=== PATIENT | male | born 1975 | race Caucasian/White ===

== ENCOUNTER 2022-12-20 03:57 | Day surgery (SDC) | payer OTHER ==
[2022-12-17 12:40] VITALS: BMI 31.4
[2022-12-20] MEDS ORDERED: PROPOFOL 40 ML ONE (07:35)
[2022-12-20] MEDS ORDERED: COCAINE HCL 4% TOPICAL SOLUTION 4 ML BOTTLE TP ONE (07:42)
[2022-12-20] MEDS ORDERED: MIDAZOLAM HCL 2 MG/2 ML SINGLE DOSE VIAL ONE (08:52)
[2022-12-20] MEDS ORDERED: ceFAZolin SODIUM 1 GM VIAL IVPB ONE (09:25)
[2022-12-20] MEDS ORDERED: ROCURONIUM BROMIDE 50 MG/5 ML SYRINGE ONE (09:30)
[2022-12-20] MEDS ORDERED: HYDROmorphone HCl 2 MG/ML VIAL ONE (09:35)
[2022-12-20] MEDS ORDERED: LIDOCAINE 2%/EPINEPHRINE 1:100000 (50 ML MD VIAL) INF ONE (09:41)
[2022-12-20] MEDS ORDERED: OXYMETAZOLINE 0.05% NASAL SOLUTION 15 ML BOTTLE NS ONE (09:55)
[2022-12-20] MEDS ORDERED: PROPOFOL 20 ML ONE (10:31)
[2022-12-20] MEDS ORDERED: BACITRACIN ZINC 15 GM TUBE TOPICAL OINTMENT ONE (11:12)
[2022-12-20] MEDS ORDERED: NEOSTIGMINE METHYLSULFATE 0.5 MG/1 ML - 10 ML MDV ONE (11:17)
[2022-12-20] MEDS ORDERED: oxyCODONE HCL 5 MG TABLET PO PRN (11:49)
[2022-12-20] MEDS ORDERED: ONDANSETRON 4 MG/2 ML VIAL IVPUSH PRN (11:49)
[2022-12-20] MEDS ORDERED: ACETAMINOPHEN 1000 MG/100 ML BAG IVPB ONE (11:49)
[2022-12-20 13:31] VITALS: TEMP 98.4
[2022-12-20 13:37] VITALS: RESP 20
[2022-12-20 14:55] VITALS: BP 119/76; PULSE 80
== END 2022-12-20 14:58 | disposition home or self-care (01) ==
LOC: JASU-SURG 03:57
PROVIDERS: ATTEND Otolaryngology
PROC: 09BU8ZZ Excision of Right Ethmoid Sinus, Via Natural or Artificial Opening Endoscopic (ICD-10-PCS; 2022-12-20)
PROC: 8E09XBZ Computer Assisted Procedure of Head and Neck Region (ICD-10-PCS; 2022-12-20)
PROC: 09BM8ZZ Excision of Nasal Septum, Via Natural or Artificial Opening Endoscopic (ICD-10-PCS; 2022-12-20)
PROC: 09TL8ZZ Resection of Nasal Turbinate, Via Natural or Artificial Opening Endoscopic (ICD-10-PCS; 2022-12-20)
PROC: 8E09XBZ Computer Assisted Procedure of Head and Neck Region (ICD-10-PCS; 2022-12-20)
PROC: 09BV8ZZ Excision of Left Ethmoid Sinus, Via Natural or Artificial Opening Endoscopic (ICD-10-PCS; principal; 2022-12-20 08:00)
DX: J32.4 Chronic pansinusitis (principal); J33.9 Nasal polyp, unspecified; J34.2 Deviated nasal septum; J34.3 Hypertrophy of nasal turbinates; R09.81 Nasal congestion
CPT/HCPCS: 88304-TC; 88311-TC; 94760